=== PATIENT | male | born 1970 | race Hispanic/Latino ===

== ENCOUNTER 2024-02-09 16:07 | Emergency (ER) | payer OTHER, SELFPAY ==
[2024-02-09] MEDS ORDERED: Tetracaine 0.5% PF 4 ML BOT ONE (16:19)
[2024-02-09] MEDS ORDERED: Fluorescein Opthalmic Strip ONE (16:19)
== END 2024-02-09 16:53 | disposition home or self-care (01) ==
LOC: NAV ERS 16:07
DX: H57.11 Ocular pain, right eye (principal)
CPT/HCPCS: 99283